=== PATIENT | male | born 1980 | race Caucasian/White ===

== ENCOUNTER → 2019-02-24 | Outpatient (CLI) | payer OTHER ==
[~2019-02-24] MED LIST: OFLOXACIN5 ML OTIC
== END | disposition home or self-care (01) ==
LOC: OFIC 805 09:30
DX: J31.0 Chronic rhinitis (principal); H61.21 Impacted cerumen, right ear; H60.8X1 Other otitis externa, right ear

== ENCOUNTER 2021-03-14 16:48 | Emergency (ER) | payer OTHER ==
[~2021-03-14] VITALS: Ht 177.8 cm; Wt 83.0 kg
[2021-03-14] MEDS ORDERED: TYLENOL (17:28)
== END 2021-03-14 22:26 | disposition home or self-care (01) ==
LOC: ER 16:48
DX: A90 Dengue fever [classical dengue] (principal); B34.9 Viral infection, unspecified; Z03.818 Encounter for observation for suspected exposure to other biological agents ruled out

== ENCOUNTER 2024-03-24 13:36 | Emergency (ER) | payer OTHER ==
[~2024-03-24] VITALS: Ht 177.8 cm; Wt 87.5 kg
[~2024-03-24 13:36] MED LIST changes: +TYLENOL
[2024-03-24] MEDS ORDERED: CEFTRIAXONE SODIUM 1,000 MG VIAL IV STA (14:07)
[2024-03-24 14:46] LABS: HEMOGLOBIN 14.5 g/dL (13-16.00); MEAN CELL VOLUME 87.5 fL (80.0-100.00); MEAN CORPUSCULAR HEMOGLOBIN 29.6 pg (27.00-32.0); MEAN CORPUSCULAR HGB CONC 33.8 g/dl (32.0-36.0); PLATELET COUNT 231 K/uL (150-450); RED BLOOD COUNT 4.92 M/uL (4.00-6.00); RED CELL DISTRIBUTION WIDTH 13.5 % (11.5-14.5)
== END 2024-03-24 17:43 | disposition home or self-care (01) ==
LOC: ER 13:36
PROVIDERS: General Practice
DX: L02.512 Cutaneous abscess of left hand (principal)